=== PATIENT | male | born 1945 | race Caucasian/White ===

== ENCOUNTER 2019-03-08 07:11 | Day surgery (SDC) | payer MEDICARE ==
[~2019-03-08] VITALS: Ht 177.8 cm; Wt 133.7 kg
[~2019-03-08 07:11] MED LIST: ALPR-623 PO; ASPI81TA52 PO; ATOR40TA PO; CARV3.122 PO; COL100C PO; FURO-150 PO; GABA-532 PO; GLIM4TAB79 PO; HYDR-3972 PO; LISI2.5T89 PO; POTA10CA44 PO; TAMS0.4C32 PO; TEMA30CA5 PO
[2019-03-08 07:23] VITALS: BP 129/63
[2019-03-08] MEDS ORDERED: CARV-50 PO (07:51)
[2019-03-08] MEDS ORDERED: GLIP10TA11 PO (07:51)
[2019-03-08] MEDS ORDERED: FURO40TA4 PO (07:51)
[2019-03-08] MEDS ORDERED: SACU1TAB PO (07:57)
[2019-03-08] MEDS ORDERED: ERGO500041 PO (07:57)
[2019-03-08] MEDS ORDERED: PANT20TA2 PO (07:57)
[2019-03-08 08:20] LABS: ALBUMIN 3.3 G/DL (3.4-5.0); TOTAL PROTEIN 7.7 G/DL (6.4-8.2)
[2019-03-08 08:56] VITALS: BP 154/93
[2019-03-08 09:07] VITALS: BP 157/98
[2019-03-08 09:15] VITALS: BP 154/74
[2019-03-08] MEDS ORDERED: LIDOcaine 1% 30ml preserv. free vial SQ ONE (09:30)
[2019-03-08 10:29] LABS: LDH,BODY FLUID 383 U/L
[2019-03-08 10:47] LABS: BASOPHILS,BODY FLUID 1 %; LYMPHOCYTES,BODY FLUID 85 %; MONOCYTES,BODY FLUID 1 %; NEUTROPHILS,BODY FLUID 13 %
[2019-03-08 11:02] LABS: BFAPPEAR BLOODY; BFCOLOR RED; BFVOLUME 45 ML
[2019-03-08 11:03] LABS: BF RBC COUNT 119500 /CU MM; BF WBC COUNT 389 /CU MM (0-1000)
== END 2019-03-08 09:45 | disposition home or self-care (01) ==
LOC: SSTAY O 07:11
PROVIDERS: ATTEND Radiology Diagnostic Radiology
DX: J90 Pleural effusion, not elsewhere classified (principal); J44.9 Chronic obstructive pulmonary disease, unspecified; I10 Essential (primary) hypertension; I42.9 Cardiomyopathy, unspecified; K21.9 Gastro-esophageal reflux disease without esophagitis; E11.9 Type 2 diabetes mellitus without complications; E78.5 Hyperlipidemia, unspecified; E66.2 Morbid (severe) obesity with alveolar hypoventilation; Z95.810 Presence of automatic (implantable) cardiac defibrillator; Z79.82 Long term (current) use of aspirin; Z79.84 Long term (current) use of oral hypoglycemic drugs; Z79.899 Other long term (current) drug therapy; Z87.891 Personal history of nicotine dependence; Z88.8 Allergy status to other drugs, medicaments and biological substances
CPT/HCPCS: 32555; 71045; 82040; 82042; 83615; 84155; 84157; 89051; C1729; J3490

== ENCOUNTER 2022-07-29 11:25 | Day surgery (SDC) | payer MEDICARE ==
[~2022-07-29] VITALS: Ht 177.8 cm; Wt 136.0 kg
[~2022-07-29 11:25] MED LIST changes: -ALPR-623 PO; +CARV-50 PO; -CARV3.122 PO; -COL100C PO; +ERGO500041 PO; -FURO-150 PO; +FURO40TA4 PO; -GLIM4TAB79 PO; +GLIP10TA11 PO; -HYDR-3972 PO; -LISI2.5T89 PO; +PANT20TA2 PO; +SACU1TAB PO; -TAMS0.4C32 PO
[2022-07-29] MEDS ORDERED: MIDAZolam 1 MG/ML 5ML VIAL ONE (11:40)
[2022-07-29] MEDS ORDERED: LIDOcaine Viscous 15ml cup ONE (11:40)
[2022-07-29] MEDS ORDERED: fentaNYL/PF 50MCG/1 ML 2ML syringe ONE ×2 (11:40→14:53)
[2022-07-29 11:42] VITALS: BP 124/73
[2022-07-29] MEDS ORDERED: WARF7.5T48 PO (12:13)
[2022-07-29] MEDS ORDERED: FERR325T28 PO (12:14)
[2022-07-29 15:32] VITALS: BP 141/82
[2022-07-29 15:42] VITALS: BP 106/51
[2022-07-29 15:52] VITALS: BP 105/54
[2022-07-29 16:02] VITALS: BP 110/54
== END 2022-07-29 16:06 | disposition home or self-care (01) ==
LOC: GI LAB 11:25
PROVIDERS: ATTEND Internal Medicine Gastroenterology
DX: K55.20 Angiodysplasia of colon without hemorrhage (principal); D50.0 Iron deficiency anemia secondary to blood loss (chronic); K57.30 Diverticulosis of large intestine without perforation or abscess without bleeding; Z79.899 Other long term (current) drug therapy; K29.70 Gastritis, unspecified, without bleeding; D50.9 Iron deficiency anemia, unspecified
CPT/HCPCS: 43239; 45382; 82948; 99153; G0500; J2250; J3010; J7030; Z7512; 88305; 99152; A4620

== ENCOUNTER 2022-10-04 08:13 | Outpatient (CLI) | payer MEDICARE ==
[2022-09-28 11:06] LABS: ALBUMIN 3.4 G/DL (3.4-5.0); ANION GAP 7 (8-16); BLOOD UREA NITROGEN 13 MG/DL (7-18); BUN/CREATININE RATIO 13.8 (5.4-32.0); CALCIUM 9.1 MG/DL (8.5-10.1); CHLORIDE 101 MMOL/L (99-107); CREATININE 0.94 MG/DL (0.60-1.10); GLUCOSE 259 MG/DL (70-104); POTASSIUM 4.2 MMOL/L (3.5-5.1); SODIUM 137 MMOL/L (135-145); TOTAL CARBON DIOXIDE 29.3 MMOL/L (24-32); eGFR 78 ML/MIN
[~2022-10-04 08:13] MED LIST changes: -ASPI81TA52 PO; -ERGO500041 PO; +FERR325T28 PO; +WARF7.5T48 PO
[2022-10-04] MEDS ORDERED: IODIXANOL 320 MG/ML INFUS..BTL 100ML IV ONE (08:29)
== END 2022-10-04 23:59 | disposition home or self-care (01) ==
LOC: RAD 08:13
PROVIDERS: ATTEND Internal Medicine Cardiovascular Disease
DX: I48.0 Paroxysmal atrial fibrillation (principal); I25.10 Atherosclerotic heart disease of native coronary artery without angina pectoris; J98.11 Atelectasis; J90 Pleural effusion, not elsewhere classified; Z98.890 Other specified postprocedural states
CPT/HCPCS: 36415; 75572; 80048; J3490; Q9967

== ENCOUNTER 2023-01-05 10:34 | Outpatient (CLI) | payer MEDICARE ==
[~2023-01-05 10:34] MED LIST changes: -POTA10CA44 PO; +POTA10CA45 PO
[2023-01-05] MEDS ORDERED: IODIXANOL 320 MG/ML INFUS..BTL 100ML IV ONE (11:01)
== END 2023-01-05 23:59 | disposition home or self-care (01) ==
LOC: RAD 10:34
PROVIDERS: ATTEND Internal Medicine Cardiovascular Disease
DX: I48.0 Paroxysmal atrial fibrillation (principal); J90 Pleural effusion, not elsewhere classified; J98.11 Atelectasis; J43.9 Emphysema, unspecified; J84.10 Pulmonary fibrosis, unspecified; K76.0 Fatty (change of) liver, not elsewhere classified; Z95.818 Presence of other cardiac implants and grafts; Z95.0 Presence of cardiac pacemaker; Z95.2 Presence of prosthetic heart valve
CPT/HCPCS: 75572; J3490; Q9967